=== PATIENT | female | born 1960 | race African-American/Black ===

== ENCOUNTER 2018-01-02 10:24 | Inpatient (IN) ==
[2018-01-04 08:37] VITALS: BP 105/79
== END 2018-01-04 10:23 | disposition home or self-care (01) | DRG 287 ==
LOC: N.ED 10:24 → SUATTDRO 12:34 → N.EDINP 12:34 → N.2E 14:48
PROVIDERS: ADMIT Internal Medicine; ATTEND Hospitalist

== ENCOUNTER 2019-07-19 09:17 | Inpatient (IN) ==
[2019-07-19] MEDS ORDERED: ONDANSETRON 4 MG/2 ML VIAL IV ONE (09:34)
[2019-07-19] MEDS ORDERED: ASPIRIN 325 MG TABLET PO STA (09:34)
[2019-07-19] MEDS ORDERED: MORPHINE 4 MG/1 ML VIAL IV ONE (09:34)
[2019-07-19 09:53] LABS: Basophils % 0.2 % (0.0-0.8); Eosinophils % 0.2 % (0.00-10.9); Hematocrit 35.2 VOL% (35.7-47.0); Hemoglobin 11.1 GM/DL (12.0-16.0); Immature Granulocytes % 0.2 %; Immature Granulocytes Absolute 0.01 #; Lymphocytes # 1.3 10*3/uL (1.4-4.0); Lymphocytes % 29.6 % (21.3-54.2); Mean Corpuscular HGB Conc 31.5 GM/DL (32-36); Mean Corpuscular Volume 100.9 FL (87-102); Monocytes % 4.4 % (1.7-12.7); Neutrophils % 65.4 % (38.7-73.9); Platelet Count 243 T/CUMM (130-400); Red Blood Count 3.49 MC/CUMM (3.8-5.5); Red Cell Distribution Width 13.2 % (9.3-17.3); White Blood Count 4.3 T/CUMM (4-12)
[2019-07-19 10:03] LABS: PT Patient Result 10.6 SECS (9.6-12.2)
[2019-07-19 10:19] LABS: Troponin I 0.039 NG/ML (0.00-0.045)
[2019-07-19 10:23] LABS: Albumin 3.7 G/DL (3.4-5.0); Bilirubin,Total 1.5 MG/DL (0.2-1.0); Calcium 8.5 MG/DL (8.5-10.1); Osmolality,Calculated 271.8 MOS/KG (273-304); Total Protein 7.2 G/DL (6.4-8.3)
[2019-07-19] MEDS ORDERED: FUROSEMIDE 40 MG/4 ML VIAL IV STA (10:30)
[2019-07-19] MEDS ORDERED: MAGNESIUM SULF RIDER 4 GM in PREMIX 1 EACH IV PRN (12:30)
[2019-07-19] MEDS ORDERED: FUROSEMIDE 40 MG/4 ML VIAL IV SCH (12:30)
[2019-07-19] MEDS ORDERED: ONDANSETRON 4 MG/2 ML VIAL IV PRN (12:30)
[2019-07-19] MEDS ORDERED: MAGNESIUM SULF RIDER 2 GM in PREMIX 1 EACH IV PRN (12:30)
[2019-07-19] MEDS ORDERED: ACETAMINOPHEN 325 MG TABLET PO ONE (15:22)
[2019-07-19] MEDS ORDERED: ACETAMINOPHEN 325 MG TABLET ONE (15:23)
[2019-07-19 16:18] LABS: Troponin I 0.025 NG/ML (0.00-0.045)
[2019-07-19] MEDS: FUROSEMIDE 40 MG/4 ML VIAL IV SCH (16:41)
[2019-07-19] MEDS: buPROPion SR 150 MG TABLET PO SCH (20:54)
[2019-07-19] MEDS ORDERED: carvediloL 25 MG TABLET PO SCH (21:00)
[2019-07-19] MEDS ORDERED: SACUBITRIL/VALSARTAN 49-51 MG TABLET PO SCH (21:00)
[2019-07-19 21:15] LABS: Troponin I 0.016 NG/ML (0.00-0.045)
[2019-07-20 06:19] LABS: Basophils % 0.3 % (0.0-0.8); Eosinophils % 1.3 % (0.00-10.9); Hematocrit 33.6 VOL% (35.7-47.0); Hemoglobin 10.7 GM/DL (12.0-16.0); Immature Granulocytes % 0.3 %; Immature Granulocytes Absolute 0.01 #; Lymphocytes # 1.2 10*3/uL (1.4-4.0); Lymphocytes % 39.2 % (21.3-54.2); Mean Corpuscular HGB Conc 31.8 GM/DL (32-36); Mean Platelet Volume 9.3 FL (9.6-12.0); Monocytes % 7.8 % (1.7-12.7); Neutrophils % 51.1 % (38.7-73.9); Platelet Count 230 T/CUMM (130-400); Red Blood Count 3.36 MC/CUMM (3.8-5.5); Red Cell Distribution Width 12.8 % (9.3-17.3); White Blood Count 3.1 T/CUMM (4-12)
[2019-07-20 06:49] LABS: Hypochromasia 1+; Platelet Estimate Adequate
[2019-07-20 06:53] LABS: Albumin 3.5 G/DL (3.4-5.0); Bilirubin,Total 2.3 MG/DL (0.2-1.0); Calcium 8.6 MG/DL (8.5-10.1); Osmolality,Calculated 276.7 MOS/KG (273-304); Total Protein 6.7 G/DL (6.4-8.3)
[2019-07-20] MEDS: POTASSIUM CHLORIDE 20 MEQ TABLET PO PRN ×2 (07:10→10:02)
[2019-07-20] MEDS: SACUBITRIL/VALSARTAN 49-51 MG TABLET PO SCH ×2 (09:57→22:17)
[2019-07-20] MEDS: PANTOPRAZOLE 40 MG TABLET PO SCH (09:57)
[2019-07-20] MEDS: PYRIDOXINE 100 MG TABLET PO SCH (09:58)
[2019-07-20] MEDS: SPIRONOLACTONE 25 MG TABLET PO SCH (09:58)
[2019-07-20] MEDS: MULTIVITAMIN (OCUVITE) TABLET PO SCH (09:58)
[2019-07-20] MEDS: carvediloL 3.125 MG TABLET PO SCH ×2 (09:58→22:17)
[2019-07-20] MEDS: buPROPion SR 150 MG TABLET PO SCH ×2 (09:58→22:17)
[2019-07-20] MEDS: FUROSEMIDE 40 MG/4 ML VIAL IV SCH ×2 (11:20→18:15)
[2019-07-20] MEDS ORDERED: VANCOMYCIN INJ 1,000 MG in SODIUM CHLORIDE 0.9% 250 ML IV ONE (12:31)
[2019-07-20] MEDS ORDERED: VANCOMYCIN 500 MG VIAL IRRIG ONE (12:31)
[2019-07-20 14:08] LABS: Apearance,Urine CLEAR (Clear); Bilirubin,Urine Negative (Negative); Blood, Urine Moderate mg/dL (Negative); Glucose,Urine (UA) Negative (Negative); Ketones,Urine Negative (Negative); Mucus,Urine Occasional /LPF (Occasional); Nitrite,Urine Negative (Negative); Protein,Urine Negative; RBC,Urine 3 /HPF (0-4); Squamous Epithelial Cell,Urine Occasional /HPF (0-10); Urine Color Yellow (Yellow); Urine Specific Gravity 1.005 (1.001-1.035); Urine Urobilinogen < 2.0 EU/DL (0.2-1.0)
[2019-07-20] MEDS ORDERED: OXYMETAZOLINE 0.05% NASAL SPRAY 15 ML BOTTLE BOTH NARES SCH (21:00)
[2019-07-20] MEDS: ENOXAPARIN 40 MG/0.4 ML SYRINGE SUBCUT SCH (22:17)
[2019-07-20] MEDS: OXYMETAZOLINE 0.05% NASAL SPRAY 15 ML BOTTLE BOTH NARES SCH (22:22)
[2019-07-21 05:11] LABS: Basophils % 0.3 % (0.0-0.8); Eosinophils # 0.1 10*3/uL (0.0-0.87); Eosinophils % 2.4 % (0.00-10.9); Hematocrit 36.8 VOL% (35.7-47.0); Hemoglobin 11.9 GM/DL (12.0-16.0); Immature Granulocytes % 0.3 %; Immature Granulocytes Absolute 0.01 #; Lymphocytes % 59.8 % (21.3-54.2); Mean Corpuscular HGB Conc 32.3 GM/DL (32-36); Mean Platelet Volume 9.5 FL (9.6-12.0); Monocytes % 8.9 % (1.7-12.7); Neutrophils % 28.3 % (38.7-73.9); Platelet Count 264 T/CUMM (130-400); Red Blood Count 3.68 MC/CUMM (3.8-5.5); Red Cell Distribution Width 12.7 % (9.3-17.3); White Blood Count 3.4 T/CUMM (4-12)
[2019-07-21 05:35] LABS: Calcium 9.2 MG/DL (8.5-10.1)
[2019-07-21 05:39] LABS: Atypical Lymphocytes Few; Eosinophils 1 % (0-10); Lymphocytes 60 % (20-55); Platelet Estimate Adequate; Segmented Neutrophils 28 % (50-85); Total Cells Counted 100
[2019-07-21 05:40] LABS: Hypochromasia 1+
[2019-07-21] MEDS: FUROSEMIDE 40 MG/4 ML VIAL IV SCH ×2 (07:31→15:55)
[2019-07-21] MEDS: PYRIDOXINE 100 MG TABLET PO SCH (09:12)
[2019-07-21] MEDS: buPROPion SR 150 MG TABLET PO SCH ×2 (09:12→21:04)
[2019-07-21] MEDS: carvediloL 3.125 MG TABLET PO SCH ×2 (09:12→21:04)
[2019-07-21] MEDS: SPIRONOLACTONE 25 MG TABLET PO SCH (09:12)
[2019-07-21] MEDS: MULTIVITAMIN (OCUVITE) TABLET PO SCH (09:12)
[2019-07-21] MEDS: PANTOPRAZOLE 40 MG TABLET PO SCH (09:12)
[2019-07-21] MEDS: ASPIRIN EC 81 MG TABLET PO SCH (09:12)
[2019-07-21] MEDS: SACUBITRIL/VALSARTAN 49-51 MG TABLET PO SCH ×2 (09:13→21:05)
[2019-07-21] MEDS: POTASSIUM CHLORIDE 20 MEQ TABLET PO PRN ×4 (09:13→16:55)
[2019-07-21] MEDS: OXYMETAZOLINE 0.05% NASAL SPRAY 15 ML BOTTLE BOTH NARES SCH ×2 (09:15→21:05)
[2019-07-21] MEDS: ENOXAPARIN 40 MG/0.4 ML SYRINGE SUBCUT SCH (21:04)
[2019-07-21] MEDS ORDERED: ZALEPLON 5 MG CAPSULE PO ONE (21:37)
[2019-07-22 04:56] LABS: Basophils % 0.5 % (0.0-0.8); Eosinophils # 0.1 10*3/uL (0.0-0.87); Eosinophils % 2.1 % (0.00-10.9); Hematocrit 38.3 VOL% (35.7-47.0); Hemoglobin 12.3 GM/DL (12.0-16.0); Immature Granulocytes % 0.7 %; Immature Granulocytes Absolute 0.03 #; Lymphocytes # 2.4 10*3/uL (1.4-4.0); Lymphocytes % 54.9 % (21.3-54.2); Mean Corpuscular HGB Conc 32.1 GM/DL (32-36); Mean Platelet Volume 9.4 FL (9.6-12.0); Monocytes % 7.5 % (1.7-12.7); Neutrophils % 34.3 % (38.7-73.9); Platelet Count 308 T/CUMM (130-400); Red Blood Count 3.91 MC/CUMM (3.8-5.5); Red Cell Distribution Width 12.9 % (9.3-17.3); White Blood Count 4.3 T/CUMM (4-12)
[2019-07-22 05:23] LABS: Calcium 9.5 MG/DL (8.5-10.1); Osmolality,Calculated 271.1 MOS/KG (273-304)
[2019-07-22 05:24] LABS: Band Neutrophils 1 % (0-10); Eosinophils 4 % (0-10); Lymphocytes 56 % (20-55); Segmented Neutrophils 31 % (50-85)
[2019-07-22 05:25] LABS: Platelet Estimate Normal; Total Cells Counted 100
[2019-07-22] MEDS: ASPIRIN EC 81 MG TABLET PO SCH (09:48)
[2019-07-22] MEDS: MULTIVITAMIN (OCUVITE) TABLET PO SCH (09:48)
[2019-07-22] MEDS: buPROPion SR 150 MG TABLET PO SCH ×2 (09:48→21:38)
[2019-07-22] MEDS: SPIRONOLACTONE 25 MG TABLET PO SCH (09:49)
[2019-07-22] MEDS: PANTOPRAZOLE 40 MG TABLET PO SCH (09:49)
[2019-07-22] MEDS: carvediloL 3.125 MG TABLET PO SCH ×2 (09:49→21:38)
[2019-07-22] MEDS: PYRIDOXINE 100 MG TABLET PO SCH (09:49)
[2019-07-22] MEDS: FUROSEMIDE 40 MG/4 ML VIAL IV SCH ×2 (09:52→16:47)
[2019-07-22] MEDS: OXYMETAZOLINE 0.05% NASAL SPRAY 15 ML BOTTLE BOTH NARES SCH ×2 (09:56→21:40)
[2019-07-22] MEDS: SACUBITRIL/VALSARTAN 49-51 MG TABLET PO SCH ×2 (12:47→21:39)
[2019-07-22] MEDS ORDERED: diphenhydrAMINE CAP 25 MG CAPSULE PO PRN (16:47)
[2019-07-22] MEDS ORDERED: MAGNESIUM HYDROXIDE SUSP 30 ML UDCUP PO PRN (16:47)
[2019-07-22] MEDS: ENOXAPARIN 40 MG/0.4 ML SYRINGE SUBCUT SCH (21:40)
[2019-07-23 05:10] LABS: Basophils % 0.7 % (0.0-0.8); Eosinophils # 0.1 10*3/uL (0.0-0.87); Hematocrit 37.5 VOL% (35.7-47.0); Hemoglobin 12.5 GM/DL (12.0-16.0); Immature Granulocytes % 1.1 %; Immature Granulocytes Absolute 0.05 #; Lymphocytes # 2.7 10*3/uL (1.4-4.0); Lymphocytes % 59.7 % (21.3-54.2); Mean Corpuscular HGB Conc 33.3 GM/DL (32-36); Mean Corpuscular Volume 96.2 FL (87-102); Mean Platelet Volume 9.2 FL (9.6-12.0); Neutrophils % 28.5 % (38.7-73.9); Platelet Count 374 T/CUMM (130-400); Red Cell Distribution Width 12.9 % (9.3-17.3); White Blood Count 4.5 T/CUMM (4-12)
[2019-07-23 05:37] LABS: Eosinophils 1 % (0-10); Lymphocytes 67 % (20-55); Platelet Estimate Adequate; Segmented Neutrophils 25 % (50-85); Total Cells Counted 100
[2019-07-23 05:38] LABS: Atypical Lymphocytes Few; Calcium 9.8 MG/DL (8.5-10.1); Hypochromasia 1+; Osmolality,Calculated 269.1 MOS/KG (273-304)
[2019-07-23] MEDS ORDERED: VANCOMYCIN INJ 1,000 MG in SODIUM CHLORIDE 0.9% 250 ML IV ONE (07:00)
[2019-07-23] MEDS ORDERED: VANCOMYCIN 500 MG VIAL ONE (07:37)
[2019-07-23] MEDS ORDERED: LIDOCAINE 1% 20 ML VIAL ONE (07:37)
[2019-07-23] MEDS ORDERED: TISSUE ADHESIVE 1 EACH APPLICATOR TOP ONE (07:37)
[2019-07-23] MEDS ORDERED: VANCOMYCIN 500 MG VIAL IRRIG ONE (09:00)
[2019-07-23] MEDS: MULTIVITAMIN (OCUVITE) TABLET PO SCH (12:31)
[2019-07-23] MEDS: SPIRONOLACTONE 25 MG TABLET PO SCH (12:31)
[2019-07-23] MEDS: PANTOPRAZOLE 40 MG TABLET PO SCH (12:32)
[2019-07-23] MEDS: PYRIDOXINE 100 MG TABLET PO SCH (12:32)
[2019-07-23] MEDS: buPROPion SR 150 MG TABLET PO SCH ×2 (12:32→21:11)
[2019-07-23] MEDS: SACUBITRIL/VALSARTAN 49-51 MG TABLET PO SCH ×2 (12:32→21:10)
[2019-07-23] MEDS: FUROSEMIDE 40 MG/4 ML VIAL IV SCH ×2 (12:32→16:41)
[2019-07-23] MEDS: ASPIRIN EC 81 MG TABLET PO SCH (12:32)
[2019-07-23] MEDS: carvediloL 3.125 MG TABLET PO SCH ×2 (12:32→21:11)
[2019-07-23] MEDS: OXYMETAZOLINE 0.05% NASAL SPRAY 15 ML BOTTLE BOTH NARES SCH ×2 (12:37→21:12)
[2019-07-23] MEDS: POTASSIUM CHLORIDE 20 MEQ TABLET PO PRN (15:19)
[2019-07-23] MEDS: KETOROLAC 30 MG/1 ML VIAL IV SCH (21:11)
[2019-07-24] MEDS: KETOROLAC 30 MG/1 ML VIAL IV SCH ×3 (02:21→15:46)
[2019-07-24 04:56] LABS: Basophils % 0.2 % (0.0-0.8); Eosinophils # 0.1 10*3/uL (0.0-0.87); Eosinophils % 1.3 % (0.00-10.9); Hematocrit 36.7 VOL% (35.7-47.0); Hemoglobin 11.7 GM/DL (12.0-16.0); Immature Granulocytes % 1.1 %; Immature Granulocytes Absolute 0.06 #; Lymphocytes # 2.2 10*3/uL (1.4-4.0); Lymphocytes % 38.4 % (21.3-54.2); Mean Corpuscular HGB Conc 31.9 GM/DL (32-36); Mean Corpuscular Volume 99.7 FL (87-102); Platelet Count 354 T/CUMM (130-400); Red Blood Count 3.68 MC/CUMM (3.8-5.5); Red Cell Distribution Width 13.2 % (9.3-17.3); White Blood Count 5.6 T/CUMM (4-12)
[2019-07-24 05:32] LABS: Atypical Lymphocytes Few; Hypochromasia 1+; Lymphocytes 43 % (20-55); Segmented Neutrophils 50 % (50-85); Total Cells Counted 100
[2019-07-24 05:33] LABS: Macrocytosis Slight
[2019-07-24 05:44] LABS: Calcium 9.4 MG/DL (8.5-10.1); Osmolality,Calculated 268.4 MOS/KG (273-304)
[2019-07-24] MEDS: SPIRONOLACTONE 25 MG TABLET PO SCH (08:57)
[2019-07-24] MEDS: FUROSEMIDE 40 MG/4 ML VIAL IV SCH ×2 (08:57→15:46)
[2019-07-24] MEDS: SACUBITRIL/VALSARTAN 49-51 MG TABLET PO SCH (08:57)
[2019-07-24] MEDS: PANTOPRAZOLE 40 MG TABLET PO SCH (08:58)
[2019-07-24] MEDS: buPROPion SR 150 MG TABLET PO SCH (08:58)
[2019-07-24] MEDS: MULTIVITAMIN (OCUVITE) TABLET PO SCH (08:58)
[2019-07-24] MEDS: carvediloL 3.125 MG TABLET PO SCH (08:58)
[2019-07-24] MEDS: ASPIRIN EC 81 MG TABLET PO SCH (08:58)
[2019-07-24] MEDS: PYRIDOXINE 100 MG TABLET PO SCH (11:55)
[2019-07-24 15:56] VITALS: BP 107/70
== END 2019-07-24 18:30 | disposition home or self-care (01) | DRG 227 ==
LOC: N.EDINP 09:17 → N.ED 09:17 → N.TELES 17:20
PROVIDERS: ADMIT Internal Medicine Cardiovascular Disease; ATTEND Internal Medicine Cardiovascular Disease

== ENCOUNTER 2021-01-20 09:22 | Inpatient (IN) ==
[2021-01-20 10:13] LABS: Basophils % 0.3 % (0.0-0.8); Hemoglobin 12.3 GM/DL (12.0-16.0); Immature Granulocytes % 0.3 %; Immature Granulocytes Absolute 0.01 #; Lymphocytes # 1.2 10*3/uL (1.4-4.0); Lymphocytes % 30.1 % (21.3-54.2); Mean Corpuscular HGB Conc 34.2 GM/DL (32-36); Mean Corpuscular Volume 98.4 FL (87-102); Mean Platelet Volume 9.5 FL (9.6-12.0); Monocytes % 4.5 % (1.7-12.7); Neutrophils % 64.8 % (38.7-73.9); Platelet Count 176 T/CUMM (130-400); Red Blood Count 3.66 MC/CUMM (3.8-5.5); Red Cell Distribution Width 11.9 % (9.3-17.3)
[2021-01-20] MEDS ORDERED: SODIUM CHLORIDE 0.9% 1,000 ML IV STA (10:16)
[2021-01-20 10:22] LABS: PT Patient Result 10.9 SECS (10.5-12.0)
[2021-01-20 10:48] LABS: Hypochromasia 1+; Microcytosis 1+; Platelet Estimate Adequate
[2021-01-20 10:49] LABS: Albumin 3.7 G/DL (3.4-5.0); Bilirubin,Total 0.6 MG/DL (0.20-1.00); Calcium 8.7 MG/DL (8.5-10.1); Ferritin 26283.2 ng/mL (8-252); Osmolality,Calculated 268.2 MOS/KG (273-304); Potassium 3.8 MMOL/L (3.5-5.1)
[2021-01-20] MEDS ORDERED: LEVOFLOXACIN INJ 750 MG/150 ML PREMIX IV STA (10:53)
[2021-01-20] MEDS ORDERED: NOREPINEPHRINE 8 MG in SODIUM CHLORIDE 0.9% 242 ML IV PRN (11:09)
[2021-01-20] MEDS ORDERED: NOREPINEPHRINE 4 MG/4 ML VIAL IV ONE (11:24)
[2021-01-20] MEDS ORDERED: diphenhydrAMINE CAP 25 MG CAPSULE PO PRN (12:33)
[2021-01-20] MEDS ORDERED: DOCUSATE SODIUM 100 MG CAPSULE PO PRN (12:33)
[2021-01-20] MEDS ORDERED: GLUCAGON 1 MG VIAL IM PRN (12:33)
[2021-01-20] MEDS ORDERED: ONDANSETRON 4 MG/2 ML VIAL IV PRN (12:33)
[2021-01-20] MEDS ORDERED: DEXTROSE 50% 25 GM/50 ML VIAL IV PRN (12:33)
[2021-01-20] MEDS ORDERED: ENOXAPARIN 40 MG/0.4 ML SYRINGE SUBCUT SCH (13:00)
[2021-01-20 13:06] LABS: Bacteria,Urine Occasional /HPF (Few); Bilirubin,Urine Negative (Negative); Blood, Urine Small mg/dL (Negative); Glucose,Urine (UA) Negative (Negative); Hyaline Casts,Urine 18 /LPF (0-3); Ketones,Urine Negative (Negative); Mucus,Urine Occasional /LPF (Occasional); Nitrite,Urine Negative (Negative); Protein,Urine Negative; RBC,Urine 1 /HPF (0-4); Squamous Epithelial Cell,Urine Occasional /HPF (0-10); Urine Appearance CLEAR (Clear); Urine Color Yellow (Yellow); Urine Specific Gravity 1.006 (1.001-1.035); Urine Urobilinogen < 2.0 EU/DL (0.2-1.0)
[2021-01-20 13:20] LABS: Barbiturates Screen,Urine Negative (Negative); Benzodiazepines Screen,Urine Negative (Negative); Cannabinoid Screen,Urine Negative (Negative); Opiate Screen,Urine Negative (Negative); Phencyclidine Screen,Urine Negative (Negative)
[2021-01-20 14:49] LABS: Risk Ratio 4.26; VLDL Cholesterol 38.2 MG/DL
[2021-01-20] MEDS: SODIUM CHLORIDE 0.9% 1,000 ML IV SCH ×2 (16:45→21:51)
[2021-01-20] MEDS: ASCORBIC ACID 500 MG TABLET PO SCH (21:51)
[2021-01-20] MEDS: FAMOTIDINE 20 MG TABLET PO SCH (21:51)
[2021-01-21] MEDS: SODIUM CHLORIDE 0.9% 1,000 ML IV SCH ×3 (00:57→16:00)
[2021-01-21] MEDS: ENOXAPARIN 40 MG/0.4 ML SYRINGE SUBCUT SCH ×2 (05:09→16:01)
[2021-01-21] MEDS: ACETAMINOPHEN 325 MG TABLET PO PRN ×2 (05:12→15:59)
[2021-01-21 05:41] LABS: Basophils % 0.3 % (0.0-0.8); Hematocrit 31.5 VOL% (35.7-47.0); Hemoglobin 10.7 GM/DL (12.0-16.0); Immature Granulocytes % 0.6 %; Immature Granulocytes Absolute 0.02 #; Lymphocytes # 1.3 10*3/uL (1.4-4.0); Lymphocytes % 37.1 % (21.3-54.2); Mean Corpuscular Volume 99.7 FL (87-102); Mean Platelet Volume 9.4 FL (9.6-12.0); Monocytes % 3.5 % (1.7-12.7); Neutrophils % 58.5 % (38.7-73.9); Platelet Count 146 T/CUMM (130-400); Red Blood Count 3.16 MC/CUMM (3.8-5.5); Red Cell Distribution Width 11.9 % (9.3-17.3); White Blood Count 3.5 T/CUMM (4-12)
[2021-01-21 06:29] LABS: Albumin 2.9 G/DL (3.4-5.0); Bilirubin,Total 0.7 MG/DL (0.20-1.00); Calcium 8.1 MG/DL (8.5-10.1); Potassium 3.7 MMOL/L (3.5-5.1); Total Protein 6.4 G/DL (6.4-8.2)
[2021-01-21] MEDS: DEXAMETHASONE 4 MG/1 ML VIAL IV SCH (08:27)
[2021-01-21] MEDS: ZINC GLUCONATE 50 MG TABLET PO SCH (08:27)
[2021-01-21] MEDS: PANTOPRAZOLE 40 MG TABLET PO SCH (08:27)
[2021-01-21] MEDS: CHOLECALCIFEROL 1,000 UNIT TABLET PO SCH (08:27)
[2021-01-21] MEDS: FAMOTIDINE 20 MG TABLET PO SCH ×2 (08:28→21:00)
[2021-01-21] MEDS: ASCORBIC ACID 500 MG TABLET PO SCH ×2 (08:28→21:00)
[2021-01-21] MEDS: AZITHROMYCIN 250 MG TABLET PO SCH (08:28)
[2021-01-21] MEDS: CETIRIZINE 10 MG TABLET PO SCH (08:28)
[2021-01-22] MEDS: guaiFENesin/CODEINE 5 ML LIQUID PO PRN ×3 (04:31→21:24)
[2021-01-22] MEDS: ENOXAPARIN 40 MG/0.4 ML SYRINGE SUBCUT SCH ×2 (05:33→16:55)
[2021-01-22] MEDS: ACETAMINOPHEN 325 MG TABLET PO PRN ×2 (06:50→14:45)
[2021-01-22 06:59] LABS: Basophils % 0.2 % (0.0-0.8); Hematocrit 29.7 VOL% (35.7-47.0); Hemoglobin 10.1 GM/DL (12.0-16.0); Immature Granulocytes % 0.5 %; Immature Granulocytes Absolute 0.02 #; Lymphocytes # 1.4 10*3/uL (1.4-4.0); Lymphocytes % 33.6 % (21.3-54.2); Mean Platelet Volume 9.3 FL (9.6-12.0); Monocytes % 2.8 % (1.7-12.7); Neutrophils % 62.9 % (38.7-73.9); Platelet Count 157 T/CUMM (130-400); White Blood Count 4.3 T/CUMM (4-12)
[2021-01-22 07:32] LABS: Albumin 2.7 G/DL (3.4-5.0); Bilirubin,Total 0.9 MG/DL (0.20-1.00); Calcium 8.1 MG/DL (8.5-10.1); Osmolality,Calculated 279.1 MOS/KG (273-304); Potassium 3.7 MMOL/L (3.5-5.1); Total Protein 6.2 G/DL (6.4-8.2)
[2021-01-22 07:45] LABS: Anisocytosis 1+; Band Neutrophils 16 % (0-10); Lymphocytes 31 % (20-55); Platelet Estimate Normal; Segmented Neutrophils 53 % (50-85); Total Cells Counted 100
[2021-01-22 07:46] LABS: Macrocytosis Slight
[2021-01-22] MEDS: FAMOTIDINE 20 MG TABLET PO SCH ×2 (09:26→21:19)
[2021-01-22] MEDS: ZINC GLUCONATE 50 MG TABLET PO SCH (09:26)
[2021-01-22] MEDS: ASCORBIC ACID 500 MG TABLET PO SCH ×2 (09:26→21:19)
[2021-01-22] MEDS: CHOLECALCIFEROL 1,000 UNIT TABLET PO SCH (09:26)
[2021-01-22] MEDS: DEXAMETHASONE 4 MG/1 ML VIAL IV SCH (09:26)
[2021-01-22] MEDS: PANTOPRAZOLE 40 MG TABLET PO SCH (09:27)
[2021-01-22] MEDS: SODIUM CHLORIDE 0.9% 1,000 ML IV SCH ×3 (09:27→16:56)
[2021-01-22] MEDS: CETIRIZINE 10 MG TABLET PO SCH (09:27)
[2021-01-22] MEDS: AZITHROMYCIN 250 MG TABLET PO SCH (09:27)
[2021-01-22] MEDS: cefTRIAXone 2,000 MG in SODIUM CHLORIDE 0.9% 100 ML IV SCH (14:46)
[2021-01-23] MEDS: SODIUM CHLORIDE 0.9% 1,000 ML IV SCH ×4 (00:56→18:28)
[2021-01-23] MEDS: ACETAMINOPHEN 325 MG TABLET PO PRN ×3 (04:11→21:29)
[2021-01-23] MEDS: ENOXAPARIN 40 MG/0.4 ML SYRINGE SUBCUT SCH ×2 (06:00→21:00)
[2021-01-23 06:42] LABS: Basophils % 0.3 % (0.0-0.8); Hematocrit 27.7 VOL% (35.7-47.0); Hemoglobin 9.3 GM/DL (12.0-16.0); Immature Granulocytes Absolute 0.04 #; Lymphocytes # 1.3 10*3/uL (1.4-4.0); Lymphocytes % 33.2 % (21.3-54.2); Mean Corpuscular HGB Conc 33.6 GM/DL (32-36); Mean Corpuscular Volume 99.6 FL (87-102); Mean Platelet Volume 9.8 FL (9.6-12.0); Monocytes % 4.2 % (1.7-12.7); NRBC # 0.02 10*3/uL; Neutrophils % 61.3 % (38.7-73.9); Platelet Count 189 T/CUMM (130-400); Red Blood Count 2.78 MC/CUMM (3.8-5.5); Red Cell Distribution Width 12.2 % (9.3-17.3); White Blood Count 3.8 T/CUMM (4-12)
[2021-01-23 07:04] LABS: Calcium 8.1 MG/DL (8.5-10.1); Osmolality,Calculated 280.1 MOS/KG (273-304); Potassium 3.7 MMOL/L (3.5-5.1)
[2021-01-23 07:09] LABS: Hypochromasia 1+; Lymphocytes 27 % (20-55); Microcytosis 1+; Platelet Estimate Adequate; Segmented Neutrophils 72 % (50-85); Total Cells Counted 100
[2021-01-23] MEDS: CHOLECALCIFEROL 1,000 UNIT TABLET PO SCH (09:01)
[2021-01-23] MEDS: DEXAMETHASONE 4 MG/1 ML VIAL IV SCH (09:01)
[2021-01-23] MEDS: ZINC GLUCONATE 50 MG TABLET PO SCH (09:01)
[2021-01-23] MEDS: PANTOPRAZOLE 40 MG TABLET PO SCH (09:01)
[2021-01-23] MEDS: FAMOTIDINE 20 MG TABLET PO SCH ×2 (09:01→21:23)
[2021-01-23] MEDS: AZITHROMYCIN 250 MG TABLET PO SCH (09:01)
[2021-01-23] MEDS: CETIRIZINE 10 MG TABLET PO SCH (09:01)
[2021-01-23] MEDS: ASCORBIC ACID 500 MG TABLET PO SCH ×2 (09:01→21:23)
[2021-01-23] MEDS ORDERED: REMDESIVIR 200 MG in SODIUM CHLORIDE 0.9% 210 ML IV ONE (11:00)
[2021-01-23] MEDS: cefTRIAXone 2,000 MG in SODIUM CHLORIDE 0.9% 100 ML IV SCH (17:08)
[2021-01-24] MEDS: SODIUM CHLORIDE 0.9% 1,000 ML IV SCH (02:37)
[2021-01-24 05:57] LABS: Hematocrit 29.7 VOL% (35.7-47.0); Hemoglobin 9.8 GM/DL (12.0-16.0); Immature Granulocytes % 0.7 %; Immature Granulocytes Absolute 0.03 #; Lymphocytes # 1.5 10*3/uL (1.4-4.0); Lymphocytes % 35.8 % (21.3-54.2); Mean Corpuscular Volume 101.7 FL (87-102); Mean Platelet Volume 9.5 FL (9.6-12.0); Monocytes % 3.6 % (1.7-12.7); Neutrophils % 59.9 % (38.7-73.9); Platelet Count 248 T/CUMM (130-400); Red Blood Count 2.92 MC/CUMM (3.8-5.5); Red Cell Distribution Width 12.4 % (9.3-17.3); White Blood Count 4.1 T/CUMM (4-12)
[2021-01-24 06:00] LABS: Calcium 8.2 MG/DL (8.5-10.1); Potassium 3.5 MMOL/L (3.5-5.1)
[2021-01-24 06:26] LABS: Hypochromasia 1+; Lymphocytes 35 % (20-55); Microcytosis 1+; Nucleated Red Blood Cells 1 (0-5); Platelet Estimate Adequate; Segmented Neutrophils 65 % (50-85); Total Cells Counted 100
[2021-01-24] MEDS ORDERED: OLANZapine 5 MG TABLET PO PRN (08:13)
[2021-01-24] MEDS: FAMOTIDINE 20 MG TABLET PO SCH ×2 (08:40→21:06)
[2021-01-24] MEDS: DEXAMETHASONE 4 MG/1 ML VIAL IV SCH (08:40)
[2021-01-24] MEDS: CHOLECALCIFEROL 1,000 UNIT TABLET PO SCH (08:41)
[2021-01-24] MEDS: cefTRIAXone 2,000 MG in SODIUM CHLORIDE 0.9% 100 ML IV SCH (08:41)
[2021-01-24] MEDS: ZINC GLUCONATE 50 MG TABLET PO SCH (08:41)
[2021-01-24] MEDS: PANTOPRAZOLE 40 MG TABLET PO SCH (08:41)
[2021-01-24] MEDS: CETIRIZINE 10 MG TABLET PO SCH (08:41)
[2021-01-24] MEDS: AZITHROMYCIN 250 MG TABLET PO SCH (08:41)
[2021-01-24] MEDS: ASCORBIC ACID 500 MG TABLET PO SCH ×2 (08:41→21:00)
[2021-01-24 08:43] LABS: ABG Oxygen Saturation 83.8 % (95-100); ABG PCO2 27.1 MM HG (35-48); ABG PO2 49.9 MM HG (80-95); ABG TCO2 16.1 MMOL/L (23-27); Allen Test Positive
[2021-01-24] MEDS: REMDESIVIR 100 MG in SODIUM CHLORIDE 0.9% 100 ML IV SCH (10:00)
[2021-01-24] MEDS: ENOXAPARIN 40 MG/0.4 ML SYRINGE SUBCUT SCH ×2 (10:00→21:06)
[2021-01-24] MEDS ORDERED: AZITHROMYCIN INJ 500 MG in SODIUM CHLORIDE 0.9% 250 ML IV SCH (14:00)
[2021-01-25 05:43] LABS: Hematocrit 29.5 VOL% (35.7-47.0); Hemoglobin 9.9 GM/DL (12.0-16.0); Immature Granulocytes % 1.2 %; Immature Granulocytes Absolute 0.04 #; Lymphocytes # 1.5 10*3/uL (1.4-4.0); Lymphocytes % 44.6 % (21.3-54.2); Mean Corpuscular HGB Conc 33.6 GM/DL (32-36); Mean Platelet Volume 9.2 FL (9.6-12.0); Monocytes % 4.7 % (1.7-12.7); Neutrophils % 49.5 % (38.7-73.9); Platelet Count 290 T/CUMM (130-400); Red Blood Count 2.92 MC/CUMM (3.8-5.5); Red Cell Distribution Width 12.5 % (9.3-17.3); White Blood Count 3.4 T/CUMM (4-12)
[2021-01-25 06:05] LABS: Hypochromasia 1+; Microcytosis 1+; Platelet Estimate Adequate
[2021-01-25 06:13] LABS: Calcium 8.1 MG/DL (8.5-10.1); Osmolality,Calculated 290.3 MOS/KG (273-304); Potassium 3.9 MMOL/L (3.5-5.1)
[2021-01-25 06:24] LABS: Ferritin 4652.5 ng/mL (8-252)
[2021-01-25 08:46] LABS: ABG Base Excess -3.3 MMOL/L (-2.5-2.5); ABG HCO3 21.1 MMOL/L (20-26); ABG Oxygen Saturation 65.7 % (95-100); ABG PCO2 38.7 MM HG (35-48); ABG PH 7.358 (7.35-7.45); ABG TCO2 19.8 MMOL/L (23-27)
[2021-01-25 08:50] LABS: ABG PO2 38.5 MM HG (80-95)
[2021-01-25] MEDS: REMDESIVIR 100 MG in SODIUM CHLORIDE 0.9% 100 ML IV SCH (10:05)
[2021-01-25] MEDS: ENOXAPARIN 40 MG/0.4 ML SYRINGE SUBCUT SCH (10:06)
[2021-01-25] MEDS: DEXAMETHASONE 4 MG/1 ML VIAL IV SCH (10:06)
[2021-01-25] MEDS: CHOLECALCIFEROL 1,000 UNIT TABLET PO SCH (10:06)
[2021-01-25] MEDS: ASCORBIC ACID 500 MG TABLET PO SCH ×2 (10:06→21:00)
[2021-01-25] MEDS: ZINC GLUCONATE 50 MG TABLET PO SCH (10:07)
[2021-01-25] MEDS: CETIRIZINE 10 MG TABLET PO SCH (10:07)
[2021-01-25] MEDS: ACETAMINOPHEN 325 MG TABLET PO PRN (10:07)
[2021-01-25] MEDS: PANTOPRAZOLE 40 MG TABLET PO SCH (10:08)
[2021-01-25] MEDS: FAMOTIDINE 20 MG TABLET PO SCH ×2 (10:08→21:00)
[2021-01-25] MEDS: CEFEPIME 1,000 MG in SODIUM CHLORIDE 0.9% 100 ML IV SCH ×3 (12:48→23:00)
[2021-01-25 14:48] LABS: ABG Base Excess -5.1 MMOL/L (-2.5-2.5); ABG HCO3 20.1 MMOL/L (20-26); ABG Oxygen Saturation 92.8 % (95-100); ABG PCO2 31.9 MM HG (35-48); ABG PH 7.385 (7.35-7.45); ABG PO2 68.8 MM HG (80-95); ABG TCO2 17.3 MMOL/L (23-27)
[2021-01-25] MEDS: cefTRIAXone 2,000 MG in SODIUM CHLORIDE 0.9% 100 ML IV SCH (17:06)
[2021-01-25] MEDS: FUROSEMIDE 40 MG/4 ML VIAL IV SCH (17:13)
[2021-01-26] MEDS: ENOXAPARIN 40 MG/0.4 ML SYRINGE SUBCUT SCH ×3 (05:00→21:31)
[2021-01-26 05:54] LABS: Eosinophils % 0.3 % (0.00-10.9); Hematocrit 29.6 VOL% (35.7-47.0); Hemoglobin 9.9 GM/DL (12.0-16.0); Immature Granulocytes % 1.2 %; Immature Granulocytes Absolute 0.04 #; Lymphocytes # 1.4 10*3/uL (1.4-4.0); Lymphocytes % 41.3 % (21.3-54.2); Mean Corpuscular HGB Conc 33.4 GM/DL (32-36); Mean Corpuscular Volume 99.7 FL (87-102); Mean Platelet Volume 9.1 FL (9.6-12.0); Neutrophils % 53.2 % (38.7-73.9); Platelet Count 357 T/CUMM (130-400); Red Blood Count 2.97 MC/CUMM (3.8-5.5); Red Cell Distribution Width 12.3 % (9.3-17.3); White Blood Count 3.5 T/CUMM (4-12)
[2021-01-26] MEDS: CEFEPIME 1,000 MG in SODIUM CHLORIDE 0.9% 100 ML IV SCH ×4 (06:15→22:50)
[2021-01-26 06:33] LABS: Ferritin 2886.8 ng/mL (8-252)
[2021-01-26 06:39] LABS: Calcium 8.5 MG/DL (8.5-10.1); Osmolality,Calculated 286.6 MOS/KG (273-304); Potassium 3.7 MMOL/L (3.5-5.1)
[2021-01-26] MEDS: HYDROCORTISONE 2.5% RECTAL CREAM 30 GM TUBE TOP PRN (09:13)
[2021-01-26] MEDS: FUROSEMIDE 40 MG/4 ML VIAL IV SCH ×2 (09:14→18:23)
[2021-01-26] MEDS: DEXAMETHASONE 4 MG/1 ML VIAL IV SCH (09:15)
[2021-01-26] MEDS: CHOLECALCIFEROL 1,000 UNIT TABLET PO SCH (09:15)
[2021-01-26] MEDS: ZINC GLUCONATE 50 MG TABLET PO SCH (09:16)
[2021-01-26] MEDS: FAMOTIDINE 20 MG TABLET PO SCH ×2 (09:16→21:30)
[2021-01-26] MEDS: REMDESIVIR 100 MG in SODIUM CHLORIDE 0.9% 100 ML IV SCH (09:16)
[2021-01-26] MEDS: PANTOPRAZOLE 40 MG TABLET PO SCH (09:16)
[2021-01-26] MEDS: ASCORBIC ACID 500 MG TABLET PO SCH ×2 (09:16→21:30)
[2021-01-26] MEDS: CETIRIZINE 10 MG TABLET PO SCH (09:16)
[2021-01-26] MEDS: ACETAMINOPHEN 325 MG TABLET PO PRN (14:35)
[2021-01-26] MEDS: SACUBITRIL/VALSARTAN 49-51 MG TABLET PO SCH (21:27)
[2021-01-26] MEDS: guaiFENesin/CODEINE 5 ML LIQUID PO PRN (23:24)
[2021-01-27] MEDS: CEFEPIME 1,000 MG in SODIUM CHLORIDE 0.9% 100 ML IV SCH ×4 (05:00→22:44)
[2021-01-27 06:08] LABS: Eosinophils % 0.3 % (0.00-10.9); Hematocrit 29.9 VOL% (35.7-47.0); Hemoglobin 10.1 GM/DL (12.0-16.0); Immature Granulocytes % 1.4 %; Immature Granulocytes Absolute 0.05 #; Lymphocytes # 1.4 10*3/uL (1.4-4.0); Lymphocytes % 38.5 % (21.3-54.2); Mean Corpuscular HGB Conc 33.8 GM/DL (32-36); Mean Corpuscular Volume 98.4 FL (87-102); Monocytes % 4.7 % (1.7-12.7); Neutrophils % 55.1 % (38.7-73.9); Platelet Count 394 T/CUMM (130-400); Red Blood Count 3.04 MC/CUMM (3.8-5.5); Red Cell Distribution Width 12.1 % (9.3-17.3); White Blood Count 3.6 T/CUMM (4-12)
[2021-01-27 06:24] LABS: Calcium 8.3 MG/DL (8.5-10.1)
[2021-01-27 06:27] LABS: Ferritin 1736.4 ng/mL (8-252)
[2021-01-27] MEDS ORDERED: POTASSIUM CHLORIDE 20 MEQ TABLET PO ONE (07:24)
[2021-01-27] MEDS: ENOXAPARIN 40 MG/0.4 ML SYRINGE SUBCUT SCH ×2 (09:28→22:43)
[2021-01-27] MEDS: REMDESIVIR 100 MG in SODIUM CHLORIDE 0.9% 100 ML IV SCH (09:28)
[2021-01-27] MEDS: CHOLECALCIFEROL 1,000 UNIT TABLET PO SCH (09:29)
[2021-01-27] MEDS: ASCORBIC ACID 500 MG TABLET PO SCH ×2 (09:29→22:44)
[2021-01-27] MEDS: PANTOPRAZOLE 40 MG TABLET PO SCH (09:29)
[2021-01-27] MEDS: SACUBITRIL/VALSARTAN 49-51 MG TABLET PO SCH ×2 (09:29→22:44)
[2021-01-27] MEDS: FAMOTIDINE 20 MG TABLET PO SCH ×2 (09:29→22:44)
[2021-01-27] MEDS: POTASSIUM CHLORIDE 20 MEQ TABLET PO SCH (09:30)
[2021-01-27] MEDS: ZINC GLUCONATE 50 MG TABLET PO SCH (09:30)
[2021-01-27] MEDS: FUROSEMIDE 40 MG/4 ML VIAL IV SCH (09:30)
[2021-01-27] MEDS: CETIRIZINE 10 MG TABLET PO SCH (09:31)
[2021-01-27] MEDS: DEXAMETHASONE 4 MG/1 ML VIAL IV SCH (09:31)
[2021-01-27] MEDS: HYDROCORTISONE 2.5% RECTAL CREAM 30 GM TUBE TOP PRN (09:32)
[2021-01-27] MEDS: guaiFENesin/CODEINE 5 ML LIQUID PO SCH ×3 (11:03→22:43)
[2021-01-27] MEDS: POTASSIUM CHLORIDE RIDER 10 MEQ/100 ML PREMIX IV PRN ×2 (18:46→23:38)
[2021-01-28] MEDS: guaiFENesin/CODEINE 5 ML LIQUID PO SCH ×4 (04:42→23:39)
[2021-01-28] MEDS: CEFEPIME 1,000 MG in SODIUM CHLORIDE 0.9% 100 ML IV SCH ×4 (04:42→23:39)
[2021-01-28 05:53] LABS: Basophils % 0.2 % (0.0-0.8); Eosinophils % 0.4 % (0.00-10.9); Hematocrit 31.6 VOL% (35.7-47.0); Hemoglobin 10.7 GM/DL (12.0-16.0); Immature Granulocytes % 1.7 %; Immature Granulocytes Absolute 0.09 #; Lymphocytes # 1.7 10*3/uL (1.4-4.0); Lymphocytes % 33.4 % (21.3-54.2); Mean Corpuscular HGB Conc 33.9 GM/DL (32-36); Mean Corpuscular Volume 99.4 FL (87-102); Mean Platelet Volume 9.5 FL (9.6-12.0); Neutrophils % 59.3 % (38.7-73.9); Platelet Count 428 T/CUMM (130-400); Red Blood Count 3.18 MC/CUMM (3.8-5.5); White Blood Count 5.2 T/CUMM (4-12)
[2021-01-28 06:02] LABS: Calcium 8.5 MG/DL (8.5-10.1); Osmolality,Calculated 286.7 MOS/KG (273-304); Potassium 3.9 MMOL/L (3.5-5.1)
[2021-01-28] MEDS: CHOLECALCIFEROL 1,000 UNIT TABLET PO SCH (09:22)
[2021-01-28] MEDS: POTASSIUM CHLORIDE 20 MEQ TABLET PO SCH (09:23)
[2021-01-28] MEDS: CETIRIZINE 10 MG TABLET PO SCH (09:23)
[2021-01-28] MEDS: ASCORBIC ACID 500 MG TABLET PO SCH ×2 (09:23→20:41)
[2021-01-28] MEDS: PANTOPRAZOLE 40 MG TABLET PO SCH (09:24)
[2021-01-28] MEDS: ZINC GLUCONATE 50 MG TABLET PO SCH (09:24)
[2021-01-28] MEDS: FAMOTIDINE 20 MG TABLET PO SCH ×2 (09:24→20:41)
[2021-01-28] MEDS: DEXAMETHASONE 4 MG/1 ML VIAL IV SCH (09:25)
[2021-01-28] MEDS: ENOXAPARIN 40 MG/0.4 ML SYRINGE SUBCUT SCH ×2 (09:25→20:41)
[2021-01-28] MEDS: SACUBITRIL/VALSARTAN 49-51 MG TABLET PO SCH ×2 (09:25→20:41)
[2021-01-28] MEDS: FUROSEMIDE 40 MG TABLET PO SCH (09:26)
[2021-01-28] MEDS: ALBUTEROL 2.5 MG/3 ML NEB RESP TX SCH (17:48)
[2021-01-29] MEDS: CEFEPIME 1,000 MG in SODIUM CHLORIDE 0.9% 100 ML IV SCH ×4 (04:47→22:15)
[2021-01-29] MEDS: guaiFENesin/CODEINE 5 ML LIQUID PO SCH ×4 (04:48→22:15)
[2021-01-29 06:10] LABS: Basophils % 0.3 % (0.0-0.8); Eosinophils % 0.3 % (0.00-10.9); Hematocrit 32.4 VOL% (35.7-47.0); Hemoglobin 10.8 GM/DL (12.0-16.0); Immature Granulocytes % 2.6 %; Immature Granulocytes Absolute 0.15 #; Lymphocytes # 2.5 10*3/uL (1.4-4.0); Lymphocytes % 42.8 % (21.3-54.2); Mean Corpuscular HGB Conc 33.3 GM/DL (32-36); Mean Corpuscular Volume 99.7 FL (87-102); Mean Platelet Volume 9.3 FL (9.6-12.0); Monocytes % 4.7 % (1.7-12.7); NRBC # 0.02 10*3/uL; Neutrophils % 49.3 % (38.7-73.9); Platelet Count 426 T/CUMM (130-400); Red Blood Count 3.25 MC/CUMM (3.8-5.5); Red Cell Distribution Width 12.3 % (9.3-17.3); White Blood Count 5.8 T/CUMM (4-12)
[2021-01-29 06:34] LABS: Calcium 8.6 MG/DL (8.5-10.1); Osmolality,Calculated 283.8 MOS/KG (273-304); Potassium 3.9 MMOL/L (3.5-5.1)
[2021-01-29 06:36] LABS: Ferritin 997.5 ng/mL (8-252)
[2021-01-29 06:40] LABS: Hypochromasia Slight; Lymphocytes 45 % (20-55); Microcytosis Slight; Platelet Estimate Adequate; Segmented Neutrophils 47 % (50-85); Total Cells Counted 100
[2021-01-29] MEDS: FAMOTIDINE 20 MG TABLET PO SCH ×2 (09:11→20:39)
[2021-01-29] MEDS: SACUBITRIL/VALSARTAN 49-51 MG TABLET PO SCH ×2 (09:11→20:46)
[2021-01-29] MEDS: CHOLECALCIFEROL 1,000 UNIT TABLET PO SCH (09:11)
[2021-01-29] MEDS: POTASSIUM CHLORIDE 20 MEQ TABLET PO SCH (09:11)
[2021-01-29] MEDS: FUROSEMIDE 40 MG TABLET PO SCH (09:11)
[2021-01-29] MEDS: ZINC GLUCONATE 50 MG TABLET PO SCH (09:11)
[2021-01-29] MEDS: CETIRIZINE 10 MG TABLET PO SCH (09:12)
[2021-01-29] MEDS: ENOXAPARIN 40 MG/0.4 ML SYRINGE SUBCUT SCH ×2 (09:12→20:39)
[2021-01-29] MEDS: ASCORBIC ACID 500 MG TABLET PO SCH ×2 (09:12→20:40)
[2021-01-29] MEDS: PANTOPRAZOLE 40 MG TABLET PO SCH (09:12)
[2021-01-29] MEDS: DEXAMETHASONE 4 MG/1 ML VIAL IV SCH (09:13)
[2021-01-29] MEDS ORDERED: FUROSEMIDE 40 MG/4 ML VIAL IV ONE ×2 (09:33→16:00)
[2021-01-29] MEDS: ALBUTEROL 2.5 MG/3 ML NEB RESP TX SCH ×2 (15:02→15:03)
[2021-01-29] MEDS ORDERED: FUROSEMIDE 20 MG/2 ML VIAL IV ONE (15:04)
[2021-01-30] MEDS: guaiFENesin/CODEINE 5 ML LIQUID PO SCH ×2 (03:45→09:36)
[2021-01-30] MEDS: CEFEPIME 1,000 MG in SODIUM CHLORIDE 0.9% 100 ML IV SCH ×2 (03:45→12:33)
[2021-01-30 05:02] LABS: Basophils % 0.1 % (0.0-0.8); Eosinophils % 0.5 % (0.00-10.9); Hematocrit 31.1 VOL% (35.7-47.0); Hemoglobin 10.3 GM/DL (12.0-16.0); Immature Granulocytes % 4.6 %; Immature Granulocytes Absolute 0.34 #; Lymphocytes % 40.6 % (21.3-54.2); Mean Corpuscular HGB Conc 33.1 GM/DL (32-36); Mean Platelet Volume 9.1 FL (9.6-12.0); NRBC # 0.02 10*3/uL; Neutrophils % 49.2 % (38.7-73.9); Platelet Count 392 T/CUMM (130-400); Red Blood Count 3.11 MC/CUMM (3.8-5.5); Red Cell Distribution Width 12.4 % (9.3-17.3); White Blood Count 7.4 T/CUMM (4-12)
[2021-01-30 05:31] LABS: Ferritin 909.4 ng/mL (8-252)
[2021-01-30 05:32] LABS: Calcium 8.5 MG/DL (8.5-10.1); Potassium 4.5 MMOL/L (3.5-5.1)
[2021-01-30 05:37] LABS: Eosinophils 1 % (0-10); Hypochromasia 1+; Lymphocytes 36 % (20-55); Microcytosis 1+; Platelet Estimate Adequate; Segmented Neutrophils 60 % (50-85); Total Cells Counted 100
[2021-01-30] MEDS: FUROSEMIDE 40 MG TABLET PO SCH (09:23)
[2021-01-30] MEDS: SACUBITRIL/VALSARTAN 49-51 MG TABLET PO SCH (09:24)
[2021-01-30] MEDS: ENOXAPARIN 40 MG/0.4 ML SYRINGE SUBCUT SCH (09:24)
[2021-01-30] MEDS: POTASSIUM CHLORIDE 20 MEQ TABLET PO SCH (09:24)
[2021-01-30] MEDS: ZINC GLUCONATE 50 MG TABLET PO SCH (09:24)
[2021-01-30] MEDS: PANTOPRAZOLE 40 MG TABLET PO SCH (09:24)
[2021-01-30] MEDS: CHOLECALCIFEROL 1,000 UNIT TABLET PO SCH (09:25)
[2021-01-30] MEDS: ASCORBIC ACID 500 MG TABLET PO SCH (09:25)
[2021-01-30] MEDS: DEXAMETHASONE 4 MG/1 ML VIAL IV SCH (09:25)
[2021-01-30] MEDS: FAMOTIDINE 20 MG TABLET PO SCH (09:26)
[2021-01-30] MEDS: CETIRIZINE 10 MG TABLET PO SCH (09:26)
[2021-01-30 12:03] VITALS: BP 97/61
== END 2021-01-30 15:15 | disposition home or self-care (01) | DRG 177 ==
LOC: N.ED 09:22 → N.EDINP 12:33 → SUATTDRO 12:33 → N.EDINP 14:04 → N.2E 16:21
PROVIDERS: ADMIT Emergency Medicine; ATTEND Internal Medicine